=== PATIENT | male | born 1990 | race Hispanic/Latino ===

== ENCOUNTER 2022-05-11 06:42 | Emergency (ER) | payer SELFPAY ==
[2022-05-11] MEDS ORDERED: Ibuprofen 200 MG TAB ONE (07:15)
[2022-05-11] MEDS ORDERED: Acetaminophen 500 MG TAB ONE (07:15)
== END 2022-05-11 08:15 | disposition home or self-care (01) ==
LOC: ERS 06:42 → EDBD 06:42 → ERS 08:15
DX: R07.89 Other chest pain (principal)
CPT/HCPCS: 71045; 99284